=== PATIENT | male | born 1940 | race Caucasian/White ===

== ENCOUNTER 2019-06-02 20:43 | Observation (INO) ==
[2019-06-02] MEDS ORDERED: ZOFRAN IV ONE (21:25)
[2019-06-02 21:46] LABS: BASO# 0.02 X1000 (0.0-0.2); BASO% 0.2 % (0.0-0.8); EOS% 1.2 % (0.0-10.0); HEMATOCRIT 39.1 % (42.0-52.0); HEMOGLOBIN 13.1 g/dL (14.0-18.0); LYMPH# 2.22 X1000 (1.2-3.4); LYMPH% 26.7 % (20.5-51.1); MCH 31.9 PG (27-31); MCHC 33.5 g/dL (33-37); MCV 95.1 FL (81-99); MONO# 0.88 X1000 (0.11-0.59); MONO% 10.6 % (1.7-9.3); MPV 9.2 FL (7.4-10.4); NEUT% 61.3 % (42.2-75.2); PLT 260 X1000 (130-400); RBC 4.11 XMIL (4.7-6.1); RDW 13.5 % (11.5-14.5); WBC 8.32 X1000 (4.8-10.8)
[2019-06-02 21:48] LABS: INR 1.12; PROTIME 14.5 Seconds (11.0-16.0)
--- NOTE | 2019-06-02 21:48 | Diag Imaging Result Doc PS360 ---
EXAM: CHEST-PORTABLE - 06/02/2019 HISTORY: syncope TECHNIQUE: Portable chest one view COMPARISON: None. FINDINGS: Heart size appears within normal limits. There are sternal wires from previous surgery. There is a small granuloma from old granulomatous disease at the left base. The lungs otherwise appear clear. There is no vascular congestion, pleural effusion, or pneumothorax identified. IMPRESSION: No evidence of acute disease. Electronically signed by Zeus Shields 06/02/2019 9:45 PM
[2019-06-02 21:49] LABS: PTT 40.1 Seconds (22.3-41.8)
--- NOTE | 2019-06-02 21:57 | PROVIDER DOCUMENTATION ---
HPI-General Adult - General Chief Complaint: Shortness of Breath Stated Complaint: resp distress, chest tightness Time Seen by Provider: 06/02/19 21:05 Source: patient, EMS Allergies/Adverse Reactions: Patient Allergies Allergy/AdvReac Type Severity Reaction Status Date / Time No Known Allergies Allergy Verified 06/02/19 21:55 Home Medications: Home Medication List Medication Instructions Recorded Confirmed Last Taken Type Unobtainable [Home Meds 06/02/19 06/02/19 Unknown History Unobtainable] - History of Present Illness -Gen Adult Nature of Presenting Problems: Patient with a h/o CAD s/p stent placement, HTN, HLD reports sudden onset of sob around 7PM today with associated nausea. He denies chest pain but admitted to a syncopal episode as got onto his bed. He lives in a [facility] complex and he eventually dialed another room in his effort to call 911 and 911 was called from the room he had dialed. He denies any recent surgery or immobilization Location of Pain/Injury: reports: none, other (sob) Pain Radiation: reports: no radiation Quality of Pain: reports: none Onset/Duration: reports: abrupt Timing: reports: still present Context/Activities at Onset: reports: none Modifying Factors: improves with: nothing Associated Symptoms: reports: nausea Review of Systems - Adult - REVIEW OF SYSTEMS - ADULT Constitutional: reports: no symptoms reported Eyes: reports: no symptoms reported Ears, Nose, Mouth & Throat: reports: no symptoms reported Cardiovascular: reports: see HPI Respiratory: reports: see HPI Gastrointestinal: reports: nausea Genitourinary: reports: no symptoms reported Musculoskeletal: reports: no symptoms reported Integumentary: reports: no symptoms reported Neurological: reports: no symptoms reported Psychiatric: reports: no symptoms reported Endocrine: reports: no symptoms reported Hematologic/Lymphatic: reports: no symptoms reported Allergic/Immunologic: reports: no symptoms reported Past History - Adult - PAST MEDICAL HISTORY-ADULT Review of Records: reports: Nursing Assessment Review, Medications Reviewed, Social history reviewed & non-contributory. Cardiovascular: reports: CAD, HTN, hyperlipidemia Respiratory: reports: denies history Gastrointestinal: reports: denies history Obstetrical/Gynecological: reports: denies history Genitourinary: reports: denies history Musculoskeletal: reports: denies history Neurological: reports: denies history Psychiatric: reports: denies history Endocrine/Immune: reports: denies history Other Conditions: reports: denies history - PRIOR SURGERIES/PROCEDURES Surgical/Procedure History: reports: cardiac stent - FAMILY HISTORY Family History: reviewed, not pertinent - SOCIAL HISTORY Smoking: denies Substance Use: denies Alcohol Use Frequency: never (denies) Living Situation: alone Physical Exam-General - PHYSICAL EXAM-ADULT Initial Vital Signs Reviewed: Yes - CONSTITUTIONAL General Appearance: appears well, mild distress - EYES Eyes: PERRL/EOMI - HEAD, EARS, NOSE, MOUTH & THROAT HENMT: normocephalic/atraumatic - NECK Neck: non-tender, full range of motion, supple - RESPIRATORY Respiratory: chest non-tender, normal breath sounds - CARDIOVASCULAR Cardiovascular: regular rate, rhythm, no edema - GASTROINTESTINAL (ABDOMEN) Abdominal Exam: non tender, soft - MUSCULOSKELETAL Back Exam: no CVA tenderness Extremity: normal range of motion, non-tender - SKIN Integumentary: other (mild skin bruising noted) - NEUROLOGIC Neurologic: electrical mechanic II-XII nml as tested - PSYCHIATRIC Psych/Mental Status: oriented x 3 Progress - PLAN OF CARE/RESULTS Progress/Plan/Lab Results: Vital Signs - 8 hr 06/02/19 20:46 Temperature 98.1 F Pulse Rate 67 Respiratory Rate 16 Blood Pressure 160/70 O2 Sat by Pulse Oximetry 100 Laboratory Results - last 24 hr 06/02/19 06/02/19 06/02/19 21:25 21:25 21:49 WBC 8.32 RBC 4.11 L Hgb 13.1 L Hct 39.1 L MCV 95.1 MCH 31.9 H MCHC 33.5 RDW Std Deviation 13.5 Plt Count 260 MPV 9.2 Immature Gran % (Auto) 0.0 Neut % (Auto) 61.3 Lymph % (Auto) 26.7 Fannin % (Auto) 10.6 H Eos % (Auto) 1.2 Baso % (Auto) 0.2 Immature Gran # (Auto) 0.00 Neut # (Auto) 5.10 Lymph # (Auto) 2.22 Fannin # (Auto) 0.88 H Eos # (Auto) 0.10 Baso # (Auto) 0.02 PT 14.5 INR 1.12 PTT (Actin FS) 40.1 POC Glucose 114 H Orders Category Date Time Status Cardiac Monitoring DIRECTED Care 06/02/19 21:09 Active Finger Stick Blood Sugar (ED) DIRECTED Care 06/02/19 21:09 Active Misc. NRSG Communication Order DIRECTED Care 06/02/19 21:09 Active Oxygen Therapy- ED Nursing DIRECTED Care 06/02/19 21:09 Active Saline Loc NOW Care 06/02/19 21:09 Active Saline Loc NOW Care 06/02/19 21:09 Active CHEST-PORTABLE [RAD] Stat Exams 06/02/19 21:[address] HEAD W/O CONTRAST [CT] Stat Exams 06/02/19 21:09 Taken CBC WITH ELECTRONIC DIFF [HEME] Stat Lab 06/02/19 21:25 Completed CK PROFILE [SP CHEM] Stat Lab 06/02/19 21:25 Received PROTIME WITH INR [COAG] Stat Lab 06/02/19 21:25 Completed PTT [COAG] Stat Lab 06/02/19 21:25 Completed TROPONIN T Stat Lab 06/02/19 21:25 Received URINALYSIS W/POSS RFLX CULT [URINALYSIS] Stat Lab 06/02/19 21:09 Uncollected URINE DRUG SCREEN Stat Lab 06/02/19 21:09 Uncollected Ondansetron [Zofran] Med 06/02/19 21:25 Discontinued 4 mg IV NOW ONE Pulse Oximetry Stat Oth 06/02/19 21:09 Active EKG [EKG] Stat Ther 06/02/19 20:46 Ordered EKG [EKG] Stat Ther 06/02/19 21:09 Ordered Result Diagrams: 06/02/19 21:25 - REASSESSMENT Reassessment #1 Time Reassessed: 22:48 Status: improving (Reports improvement of sob and his vitals have normalised but reports confusion- he does not seem to remember much. he now admits to be taking pill for depression but cannot remeber the name. He will be admitted for his syncopal episode.) - EKG 1 Time of EKG reading by physician:: 20:58 EKG Read and Signed by:: Lolita Taylor Rate: 62 Rhythm: NSR Climax: left QRS: RBB - XRAY 1 XRAY Study: Chest ( EXAM: CHEST-PORTABLE - 06/02/2019 HISTORY: syncope TECHNIQUE: Portable chest one view COMPARISON: None. FINDINGS: Heart size appears within normal limits. There are sternal wires from previous surgery. There is a small granuloma from old granulomatous disease at the left base. The lungs otherwise appear clear. There is no vascular congestion, pleural effusion, or pneumothorax identified. IMPRESSION: No evidence of acute disease. Electronically signed by Zeus Shields 06/02/2019 9:45 PM) - CT/MRI 1 CT Study: Head ( EXAM: CT HEAD W/O CONTRAST - 06/02/2019 HISTORY: stroke like symptoms TECHNIQUE: CT head without contrast COMPARISON: None. FINDINGS: There are mild atrophic changes. There are mild chronic appearing microvascular ischemic changes. There is no indication of recent infarct, although acute infarcts may not be immediately visible. There are atherosclerotic calcifications noted at the base the brain. There is no evidence of intracranial hemorrhage, mass effect, or midline shift. There is no evidence of skull fracture. Visualized portions of paranasal sinuses and mastoid air cells appear essentially clear. IMPRESSION: No visible acute intracranial abnormality. No hemorrhage or mass effect. This exam was performed using automated exposure control, adjustment of mA or kV according to patient size, and/or use of iterative reconstruction technique. Electronically signed by Zeus Shields 06/02/2019 9:54 PM 06/02/19 [id number]) - CONSULTS/PCP/HOSPITALIST Notification #1 *Consult/PCP/Hospitalist*: Dr Arciniega Time Discussed: 22:56 Consult Disposition: Admit (Accepts admission) Departure - Departure Date of Disposition Decision: 06/02/19 Time of Disposition Decision: 22:56 DIAGNOSIS: SOB (shortness of breath), Syncopal episodes Disposition: ADMITTED INPATIENT Certified Medical Emergency: Emergent Condition: Fair - Critical Care Note This patient required my direct & personal management of CC.: No Attestation - Physician/ SUSAN Attestation Patient care was provided by Advanced Practice Provider:: No The physician spent face to face time with patient:: Yes Advanced Practice Provider documentation review:: Supervising physician onsite and consulted in the evaluation and care of this patient. The physician did have a face to face encounter with the patient.
[2019-06-02 22:00] LABS: URINE SOURCE CLEAN CATCH
[2019-06-02 22:04] LABS: BILIRUBIN URINE NEGATIVE (NEGATIVE); BLOOD URINE NEGATIVE (NEGATIVE); COLOR YELLOW; GLUCOSE URINE NEGATIVE (NEGATIVE); KETONE URINE TRACE mg/dL (NEGATIVE); LEUKOCYTES URINE NEGATIVE (NEGATIVE); NITRITE URINE NEGATIVE (NEGATIVE); PROTEIN URINE TRACE mg/dL (NEGATIVE); TURBIDITY URINE CLEAR (CLEAR); UROBILINOGEN URINE NORMAL (NORMAL)
[2019-06-02 22:06] LABS: UR EPITHELIAL CELLS <10 /HPF (<10); URINE BACTERIA NEGATIVE /HPF; URINE RBC <10 /HPF (<10); URINE WBC <10 /HPF (<10)
[2019-06-02 22:16] LABS: UR AMPHETAMINES QUAL NONE DETECTED (NONE DETECT); UR BARBITUATES QUAL NONE DETECTED (NONE DETECT); UR BENZODIAZEPIN QUAL NONE DETECTED (NONE DETECT); UR CANNABINOIDS QUAL NONE DETECTED (NONE DETECT); UR COCAINE QUAL NONE DETECTED (NONE DETECT); UR METHADONE QUAL NONE DETECTED (NONE DETECT); UR OPIATES QUAL NONE DETECTED (NONE DETECT); UR OXYCODONE QUAL NONE DETECTED (NONE DETECT); UR PCP QUAL NONE DETECTED (NONE DETECT)
--- NOTE | 2019-06-03 00:14 | EKG Report ---
Test Performed on : 06/02/2019 8:53:50 PM Test Reason : shortness of breath Blood Pressure : / mmHG Vent. Rate : 062 BPM Atrial Rate : 062 BPM P-R Int : 196 ms QRS Dur : 164 ms QT Int : 478 ms P-R-T Axes : 014 -62 003 degrees QTc Int : 485 ms Normal sinus rhythm. with sinus arrhythmia. Right bundle branch block Left anterior fascicular block Bifascicular block Moderate voltage criteria for LVH, may be normal variant Abnormal ECG No previous ECGs available Unconfirmed Result
--- NOTE | 2019-06-03 02:39 | HISTORY AND PHYSICAL ---
PRIMARY CARE PHYSICIAN: walk-in clinic. CHIEF COMPLAINT: Shortness of breath and passed out. HISTORY OF PRESENTING ILLNESS: An 79-year-old elderly male with a history of hypertension, hyperlipidemia, coronary disease, who had presented to the emergency department with a 1-day history of where he got short of breath and passed out. He does not really recall what happened. He states that he came to and called EMS and was brought to the emergency department. In the ED, he was evaluated. He seemed to be improved. However, due to his presenting symptoms it was thought that we will place him for observation for further evaluation and management. At the time of my examination, patient denied any headache, fever, chills, chest pain, hemoptysis, melena, weight changes, but complained of shortness of breath. PAST MEDICAL HISTORY: Includes hypertension, hyperlipidemia, coronary artery disease. PAST SURGICAL HISTORY: Coronary bypass, hernia repair, cataract surgery. ALLERGIES: No known drug allergies. CURRENT MEDICATIONS: He does not recall and nursing staff will reconcile. SOCIAL HISTORY: No history of smoking, alcohol or illicit drug use. FAMILY HISTORY: Positive for coronary artery disease in mother. REVIEW OF SYSTEMS: Fourteen point review of systems as listed in HPI. Other systems negative. PHYSICAL EXAMINATION: GENERAL: Cooperative, friendly male. He is resting more comfortably now. VITAL SIGNS: Temperature 98.1 degrees, pulse 67, respirations 16, blood pressure 160/70. HEENT: Atraumatic, normocephalic. Extraocular movements intact. PERRLA. NECK: No masses. CHEST: Bibasilar rales. CARDIOVASCULAR: Regular rate and rhythm. ABDOMEN: Soft. Positive bowel sounds. EXTREMITIES: Trace edema. NEUROLOGIC: He is awake, alert, oriented x3. GENITOURINARY: No bladder distention. SKIN: Warm. LABORATORIES AND STUDIES: WBCs 8.32, hemoglobin 13.1, hematocrit 39.1, platelets 260. Troponin is 0.010. UA, nitrite negative. Toxicology screen is negative. CT of the head, no hemorrhage or mass effect. Chest x-ray, no evidence of any acute disease. ASSESSMENT: An 79-year-old elderly male with a history of hypertension, hyperlipidemia, coronary disease, had presented to the emergency department with a 1-day history of having an episode where he got short of breath and passed out. He was evaluated in the emergency department. Due to his presenting symptoms, we will place him for observation for further evaluation and management. 1. Syncopal episode. 2. Dyspnea. 3. Coronary artery disease. 4. Hypertension. PLAN: 1. We will admit patient to medical floor with telemetry. 2. We will check orthostatic blood pressure and pulse. 3. We will trend troponins. 4. Put patient on supplemental oxygen. 5. We will monitor blood pressure closely. 6. We will put patient on DVT prophylaxis with SCDs. 7. We will continue to follow, and reassess and make further recommendation based on patient's clinical course. cc: Dante Arciniega MD MTDD
[2019-06-03] MEDS: NS 1,000 ML IV SCH ×2 (03:49→13:21)
[2019-06-03] MEDS ORDERED: SOLU-MEDROL IV ONE (04:25)
[2019-06-03] MEDS ORDERED: BENADRYL IV ONE (04:25)
[2019-06-03] MEDS: TYLENOL PO PRN ×2 (04:33→20:34)
[2019-06-03] MEDS: ASPIRIN PO SCH (11:13)
--- NOTE | 2019-06-03 11:48 | CONSULTATION ---
DATE OF CONSULTATION: 06/03/2019 IMPRESSION: 1. Syncope, unclear etiology. Patient did have nausea in association with his syncope, suggesting the possibility of a vasovagal episode. However, he also manifests a bifascicular block (right bundle branch block with left anterior fascicular block) on electrocardiogram, raising concerns regarding the possibility of heart block as a mechanism for his syncope. 2. Hypertension. 3. Atherosclerotic coronary disease with previous coronary bypass surgery reportedly approximately 10 years or so ago. 4. Hyperlipidemia. RECOMMENDATIONS: 1. Telemetry observation. 2. Echocardiography. 3. If no evidence of heart block on telemetry, consider discharge home with ambulatory ECG event recorder to monitor for any possible episodes of heart block. HISTORY: This 79-year-old, white male with a past history of previous coronary artery bypass grafting approximately 10 years ago, hypertension, and hyperlipidemia was admitted after an episode of syncope. He relates that last night, he sat down on the bed to retire for sleep and felt suddenly lightheaded. There was associated nausea. He immediately passed out and awoke on the bed. For this reason, he contacted EMS and came to the emergency room. He has also had some recent shortness of breath with activity. There has been no chest pain. There was no previous syncope. PAST MEDICAL HISTORY: 1. Atherosclerotic coronary disease and previous coronary artery bypass grafting approximately 10 years ago. 2. Hypertension. 3. Hyperlipidemia. PAST SURGICAL HISTORY: Includes coronary artery bypass surgery, hernia repair, and cataract surgery. ALLERGIES: He has no known drug allergies. MEDICATIONS PRIOR TO ADMISSION: Not yet listed. SOCIAL HISTORY: He lives alone. He does not smoke or use alcohol. FAMILY HISTORY: Negative for premature coronary disease. REVIEW OF SYSTEMS: Pulmonary: Negative. Gastrointestinal: Noncontributory beyond history present illness. Constitutional: Noncontributory beyond history of present illness. Remainder of review of systems negative/noncontributory beyond history present illness with 14 total systems reviewed. PHYSICAL EXAMINATION: General: This is an elderly, white male in no distress on room air. Vital Signs: Blood pressure 132/76, heart rate 73, oxygen saturation 98%. HEENT Examination: Extraocular movements appear to be intact. Mucous membranes are moist. Neck: Supple without jugular venous distention. There are no carotid bruits. Chest: Clear to auscultation bilaterally. Cardiac Examination: Reveals a regular rate and rhythm without appreciable murmur, rub, or gallop. Abdomen: Soft. Bowel sounds are normal. Extremities: Without edema. Neurologic Examination: Reveals him to be awake and responsive. Speech is fluent. He moves all 4 extremities equally well. PERTINENT DATA: Twelve lead EKG demonstrates sinus rhythm, left anterior fascicular block, and right bundle branch block. LABORATORY DATA: Includes a white blood cell count of 8.32, hematocrit 39.1, hemoglobin 13.1, platelet count 260,000. Initial troponin T less than 0.01, followup troponin T less than 0.01. Pro-B natriuretic peptide level 108. cc: Car Singh MD
[2019-06-03 15:03] LABS: AGAP 13; BUN 11 mg/dL (8-22); CALCIUM 9.1 mg/dL (8.8-10.2); CHLORIDE 100 mmol/L (98-107); COSMO 273; ESTIMATED GFR > 60; GLUCOSE 191 mg/dL (70-104); POTASSIUM 4.2 mmol/L (3.5-5.1); SODIUM 134 mmol/L (136-145); TCO2 21 mmol/L (25-35)
[2019-06-04] MEDS: NS 1,000 ML IV SCH (01:44)
[2019-06-04] MEDS: TYLENOL PO PRN ×2 (06:50→13:19)
[2019-06-04 06:59] LABS: BASO# 0.01 X1000 (0.0-0.2); BASO% 0.1 % (0.0-0.8); EOS# 0.06 X1000 (0.0-0.7); EOS% 0.5 % (0.0-10.0); HEMATOCRIT 39.2 % (42.0-52.0); HEMOGLOBIN 12.9 g/dL (14.0-18.0); LYMPH# 2.42 X1000 (1.2-3.4); LYMPH% 20.7 % (20.5-51.1); MCH 32.2 PG (27-31); MCHC 32.9 g/dL (33-37); MCV 97.8 FL (81-99); MONO# 0.97 X1000 (0.11-0.59); MONO% 8.3 % (1.7-9.3); MPV 9.2 FL (7.4-10.4); NEUT# 8.24 X1000 (1.4-6.5); NEUT% 70.4 % (42.2-75.2); PLT 230 X1000 (130-400); RBC 4.01 XMIL (4.7-6.1); RDW 13.8 % (11.5-14.5)
[2019-06-04 07:31] LABS: AGAP 12; ALBUMIN 3.5 g/dL (3.5-5.0); BUN 10 mg/dL (8-22); CALCIUM 8.6 mg/dL (8.8-10.2); CHLORIDE 107 mmol/L (98-107); COSMO 280; CREATININE 0.5 mg/dL (0.7-1.2); ESTIMATED GFR > 60; GLUCOSE 94 mg/dL (70-104); PHOSPHORUS 3.1 mg/dL (2.7-4.5); POTASSIUM 3.9 mmol/L (3.5-5.1); SODIUM 141 mmol/L (136-145); TCO2 22 mmol/L (25-35)
[2019-06-04] MEDS: ASPIRIN PO SCH (08:48)
--- NOTE | 2019-06-04 11:13 | PROGRESS NOTE ---
DATE: 06/04/2019 SUBJECTIVE: This patient seems to be feeling better. As per the patient, he feels better compared with admission. No more episodes of syncope. He is tolerating p.o. and he is having bowel movements. As per the patient, he is walking to the bathroom. OBJECTIVE: Vital Signs: Temperature 99.2 degrees, pulse 61, respiratory rate 16, blood pressure 150/64, oxygen saturation 98 on room air. HEENT: Head normocephalic. No trauma. PERRLA. Neck: Supple. No JVD. No masses. Central trachea. Chest: Clear to auscultation. No wheezing. No rales. He does have some blisters on his chest due to an allergic reaction to the telemetry electrodes. Abdomen: Soft, nontender, nondistended. No hepatosplenomegaly. Extremities: No clubbing, no cyanosis. Neurological Examination: This patient is sleepy but arousable and he is oriented. He is following commands. Laboratory: WBC 11.7, hemoglobin 12.9, hematocrit 39.2, platelets 230,000. Sodium 141, potassium 3.9, chloride 107, bicarbonate 22, BUN 10, creatinine 0.5, glucose 94, calcium 8.6, phosphorus 3.1, albumin 3.5. ASSESSMENT AND PLAN: 1. Syncope, unclear etiology but this could be related to a vasovagal episode after having some nausea. Also could be related to arrhythmia. Orthostatics are okay. Cardiology on board. I will wait for recommendations. 2. Hypertension. Continue with the same management. 3. Coronary artery disease with coronary artery bypass graft around 10 years ago. Aware. He is not complaining of chest pain or shortness of breath at this moment. 4. Hyperlipidemia. We will just continue to monitor. 5. Transient episode of shortness of breath/dyspnea. Apparently, he is not requiring too much oxygen and at this moment, he is not having shortness of breath. We will monitor for now. Head CT is negative as well as the chest x-ray. cc: Vinnie Lane MD
--- NOTE | 2019-06-04 13:53 | ECHO REPORT ---
ORDER DATE: 06/03/2019 MEASUREMENTS: Septal thickness 1.3, left ventricular internal diameter in diastole 4.7, posterior wall thickness 1.2, left ventricular internal diameter in systole 3.0, aortic root 3.5, left atrium 4.1. SUMMARY: 1. Fair quality study. 2. Mild sclerosis of trileaflet aortic valve demonstrated with adequate aortic valve opening evident. The peak gradient across the aortic valve is 18 mmHg. There is trace aortic regurgitation. Mild mitral annular calcification is demonstrated. Tricuspid and pulmonic valves are without evidence of structural abnormality with very mild tricuspid regurgitation and trace pulmonic insufficiency. The aortic root is normal in size. 3. Normal left ventricular chamber size with mild concentric left ventricular hypertrophy demonstrated. The estimated left ventricular ejection fraction appears to be at least 60%. No regional wall motion abnormalities are evident. The left atrium is mildly enlarged. The right atrium and right ventricle are normal in size with normal right ventricular systolic function. 4. No pericardial effusion. 5. Appearance of the inferior vena cava suggests normal central venous pressure. CONCLUSIONS: 1. Aortic valve sclerosis without significant stenosis with trace aortic regurgitation. 2. Mild mitral annular calcification. 3. Very mild tricuspid regurgitation. 4. Mild concentric left ventricular hypertrophy with estimated left ventricular ejection fraction of at least 60%. 5. Mild left atrial enlargement. cc: Car Singh MD
--- NOTE | 2019-06-04 14:26 | PROGRESS NOTE ---
DATE: 06/04/2019 SUBJECTIVE: Patient continues without chest discomfort or shortness of breath on room air. OBJECTIVE: Vital Signs: Blood pressure 147/72 with a heart rate of 67 oxygen saturation 98%. There is no evidence of orthostatic hypotension. There is no significant jugular venous distention. Chest is clear to auscultation. Cardiac: Reveals a regular rate and rhythm without appreciable murmur or gallop. No evidence of peripheral edema. DATA: Echocardiography demonstrates normal left ventricular ejection fraction. Aortic valve sclerosis without significant stenosis demonstrated. IMPRESSION: 1. Syncope. 2. Abnormal ECG demonstrating bifascicular block with left anterior fascicular block and right bundle branch block. 3. Hypertension. 4. Atherosclerotic coronary disease and previous coronary bypass surgery approximately 10 years or so ago. 5. Hyperlipidemia. RECOMMENDATION: At this point the patient's ECG monitoring appears to be appropriate. Patient has had some possible reaction to ECG electrodes. Given the overall clinical picture it is probably best to consider an implantable loop monitor. This was discussed at length with the patient and he is considering it. I suggested that he stay in the hospital and can have implantable loop monitor placed tomorrow by Dr. Kaye. cc: Car Singh MD
[2019-06-04 16:08] VITALS: BP 136/82
--- NOTE | 2019-06-04 23:26 | DISCHARGE SUMMARY ---
ADMISSION DATE: 06/03/2019 DISCHARGE DATE: 06/04/2019 DISCHARGE DIAGNOSES: 1. Syncope, unclear etiology, probably related to a vasovagal episode after nausea and/or related to arrhythmia. 2. Hypertension. 3. History of coronary artery disease with coronary artery bypass graft around 10 years ago. 4. Hyperlipidemia. 5. Transient episode of shortness of breath/dyspnea, resolved. PROCEDURES PERFORMED: Chest x-ray dated 06/02/2019 impression, no evidence of acute disease. Head CT dated 06/02/2019 impression, no visible acute intracranial abnormality, no hemorrhage or mass effect. Echocardiogram dated 06/03/2019, conclusion, aortic valve sclerosis without significant stenosis with trace aortic regurgitation, mild mitral annular calcification, very mild tricuspid regurgitation, mild concentric left ventricular hypertrophy with estimated left ventricular ejection fraction at least 60%, mild left atrial enlargement. CONSULT: Cardiology Department Car Segura. HOSPITAL COURSE: 79-year-old elderly male with a past medical history of hypertension, hyperlipidemia, coronary artery disease status post CABG, presented to the emergency department with 1-day history of a short episode of shortness of breath and apparently he has a syncopal episode, he does not really remember what happened, apparently he sat down on the bed and felt suddenly lightheaded and that was associated with nausea and then immediately he passed out and woke up on the bed. For that reason he presented to the emergency department but he was not complaining of chest pain. He has no history of previous history, he has been feeling better. We put a cafeteria monitor on his chest but he had some kind of allergic reaction to the telemetry electrode so Cardiology Department talked to him and tried to place a loop recorder to see if he qualifies for a pacemaker or to see if he has some kind of arrhythmia but the patient refused and actually wanted to go home today since he is feeling much better. His daughter is at the bedside. We explained to her all the situation but the patient still wants to go home. The case has been discussed with Cardiology Department. He will go home today but they will follow this patient up on 06/11/2019 at 10:30 a.m., Car Segura. At the moment of discharge this patient was in a stable medical condition. He was tolerating p.o., he was ambulating with no symptoms. PHYSICAL EXAMINATION: Vital signs: Temperature 98.6 degrees, pulse 63, respiratory rate 15, blood pressure 136/82, oxygen saturation 97 on room air. HEENT: Head normocephalic, no trauma. PERRLA. Neck: Supple. No JVD. No masses. Central trachea. Chest: Clear to auscultation. No wheezing, no rales. He does have some blisters on his chest due to an allergic reaction to the telemetry electrodes and also he has a midline scar from previous CABG. Abdomen: Soft, nontender, nondistended. No hepatosplenomegaly. Extremities: No clubbing, no edema, no cyanosis. Neurologic: This patient is awake, alert. He is actually sitting at the bedside ready to go home. LABORATORY: WBC 11.7, hemoglobin 12.9, hematocrit 39.2, platelets 230,000. Sodium 141, potassium 3.9, chloride 107, bicarbonate 22, BUN 10, creatinine 0.5, glucose 94, calcium 8.6, phosphorus 3.1, albumin 3.5. DISCHARGE MEDICATIONS: Aspirin 81 mg p.o. daily, acetaminophen 650 mg p.o. q.6 hours as needed. TIME SPENT: 25 minutes. cc: Vinnie Lane MD
== END 2019-06-04 18:05 | disposition home or self-care (01) ==
LOC: ED 20:43 → SUATTDRO 06-03 01:03 → INTOOBSV 06-03 01:03 → 3N 06-03 01:03
PROVIDERS: ATTEND Internal Medicine